=== PATIENT | male | born 1960 | race Two or more races ===

== ENCOUNTER 2017-07-11 09:28 | Day surgery (SDC) | payer BC ==
[~2017-07-11] VITALS: Ht 188 cm; Wt 104.3 kg
[2017-07-11] VITALS (14 sets, daily range): BP systolic 100–142; BP diastolic 70–102
[~2017-07-11 09:28] MED LIST: ceFAZolin 1gm/50ml Premix 50 ML IV ONE; ceFAZolin sod 1 GM in NS 55 ML IVPB ONE
[2017-07-11] MEDS ORDERED: Surgicel 4in x 8in TOPIC ONE (09:49)
[2017-07-11] MEDS ORDERED: Kenalog-40 1ml Vial ONE (09:50)
[2017-07-11] MEDS ORDERED: Bacitracin Oint 15gm Tube TOPIC ONE (09:50)
[2017-07-11] MEDS ORDERED: Cocaine 4% Vial TOPIC ONE (09:50)
[2017-07-11] MEDS ORDERED: Oxymetazoline 0.05% Na Spray 30ml NASAL ONE (09:51)
[2017-07-11] MEDS ORDERED: PRILOSEC10 M1 ORAL (09:58)
[2017-07-11] MEDS ORDERED: MULTIVITAMINS1 EAC2 ORAL (09:58)
[2017-07-11] MEDS ORDERED: ceFAZolin sod 1 GM in NS 55 ML IVPB ONE (10:30)
[2017-07-11] MEDS ORDERED: Lidocaine 1% 10mg/ml/Epi 0.005mg/ml 30ml vial INJ ONE (11:00)
--- NOTE | 2017-07-11 11:17 | Pre-Procedure Note/Attestation ---
Pre-Procedure Note/Attestation Complete Prior to Procedure Planned Procedure: not applicable Procedure Narrative: Septoplasty, bilateral inferior turbinectomies with intramural coagulation Indications for Procedure Pre-Operative Diagnosis: septal deviation, bilateral hypertrophied inferior turbinates Attestation I attest that I discussed the nature of the procedure; its benefits; risks and complications; and alternatives (and the risks and benefits of such alternatives ), prior to the procedure, with the patient (or the patient's legal career services representative). I attest that, if there was a reasonable possibility of needing a blood transfusion, the patient (or the patient's legal career services representative) was given the [facility] standardized written summary, pursuant to the [place] Blood Safety Act ([place] Health and Safety Code # 1645, as amended). I attest that I re-evaluated the patient just prior to the surgery and that there has been no change in the patient's H&P, except as documented below: DEBORAH KERR Jul 11, 2017 11:17
[2017-07-11] MEDS ORDERED: fentaNYL 100 mcg/2 mL IV ONE (11:30)
[2017-07-11] MEDS ORDERED: Neostigmine 1mg/ml 10ml Inj ONE (11:30)
[2017-07-11] MEDS ORDERED: Ketorolac 30mg Inj ONE (11:30)
[2017-07-11] MEDS ORDERED: Zemuron 50mg/5ml Inj IV ONE (11:30)
[2017-07-11] MEDS ORDERED: Labetalol 5mg/ml 20ml vial IV ONE (11:30)
[2017-07-11] MEDS ORDERED: LR 1000ml ONE (11:30)
[2017-07-11] MEDS ORDERED: Glycopyrrolate 0.2mg/ml 1ml Vial ONE (11:30)
[2017-07-11] MEDS ORDERED: Midazolam 2mg/2ml Inj ONE (11:30)
[2017-07-11] MEDS ORDERED: NS Irrig 1000ml ONE (11:30)
[2017-07-11] MEDS ORDERED: Sterile Water Irrig 1000ml IRRIG ONE (11:30)
[2017-07-11] MEDS ORDERED: Succinylcholine 20mg/ml 10ml vial ONE (11:30)
[2017-07-11] MEDS ORDERED: Propofol 10mg/ml 20ml IV ONE (12:41)
[2017-07-11] MEDS ORDERED: LR 1000ml 1,000 ML IVLG SCH (13:14)
--- NOTE | 2017-07-11 13:14 | Anethesia Preoperative Eval ---
Anesthesia Pre-op PMH/ROS General Date of Evaluation: Jul 11, 2017 Time of Evaluation: 10:50 Anesthesiologist: cesar ASA Score: ASA 2 Mallampati Score Class I : Soft palate, uvula, fauces, pillars visible Class II: Soft palate, uvula, fauces visible Class III: Soft palate, base of uvula visible Class IV: Only hard plate visible Mallampati Classification: Class II Surgeon: Vlad Diagnosis: Nasal septum deviation Surgical Procedure: Septoplasty Anesthesia History: none Family History: no anesthesia problems Allergies: Coded Allergies: No Known Allergies (Unverified , 07/09/17) Medications: see eMAR Past Medical History Cardiovascular: Denies: CAD, HTN, [place], arrhythmia, other, valve dz Pulmonary: Reports: [facility], Denies: COPD, asthma, other Gastrointestinal/Genitourinary: Reports: GERD - mild, Denies: CRI, ESRD, other Neurologic/Psychiatric: Denies: CVA, TIA, dementia, depression/anxiety, other Endocrine: Denies: DM, hypothyroidism, other, steroids HEENT: Denies: [place] (L), [place] (R), cataract (L), cataract (R), glaucoma, other Hematology/Immune: Denies: DVT, anemia, bleeding disorder, other Musculoskeletal/Integumentary: Denies: DDD, DJD, OA, RA, edema, other PMH Narrative: as above PSxH Narrative: R knee Sx, fundoplication Anesthesia Pre-op Phys. Exam Physician Exam Last Vital Signs Date Time Temp Pulse Resp B/P Pulse Ox O2 Delivery O2 Flow Rate FiO2 07/11/17 10:01 97.5 66 17 129/89 95 Room Air Constitutional: NAD Neurologic: CN 2-12 intact Cardiovascular: RRR, no M/R/G Respiratory: CTA Gastrointestinal: S/NT/ND Airway Exam Mallampati Score: Class III MO: full Neck: short ROM: full Teeth: intact Dentures: no lower, no upper Anesthesia Pre-op A/P Labs see chart Studies Pre-op Studies: EKG - NSR Risk Assessment & Plan Assessment: ASA 2 Plan: TIVA surgeon request BIS monitoring Status Change Before Surgery: No Pre-Antibiotics Drug: Ancef 2gr. Given Within 1 Hr of Incision: Yes Time Given: 11:56 DONALD MORRIS M.D. Jul 11, 2017 13:14
[2017-07-11] MEDS ORDERED: Hydromorphone 0.5mg/0.5ml inj IVP PRN (13:15)
[2017-07-11] MEDS ORDERED: Meperidine 25mg/0.5ml Inj (FOR RIGORS ONLY) IV PRN (13:15)
[2017-07-11] MEDS ORDERED: DiphenhydrAMINE 50mg/ml Inj IVP PRN (13:15)
[2017-07-11] MEDS ORDERED: Betadine 10% Oint 15gm TOPIC ONE (13:38)
--- NOTE | 2017-07-11 13:53 | Brief Operative Note ---
Immediate Post Operative Note Operative Note Pre-op Diagnosis: septal deviation, bilateral hypertrophied inferior turbinates Procedure: septoplasty, bilateral inferior turbinectomies with intramural coagulation Post-op Diagnosis: same as pre-op Surgeon: Raffi Kerr M.d. Anesthesiologist: Palma Anesthesia: general Specimen: yes - septum Complications: none Condition: stable Estimated Blood Loss: minimal Drains: none Packing: [email or web address] Implant(s) used?: No RAFFI KERR Jul 11, 2017 13:53
--- NOTE | 2017-07-11 14:13 | Immediate Post-Op Evaluation ---
Immediate Post-Op Evalulation Immediate Post-Op Evalulation Procedure: Septoplasty Date of Evaluation: Jul 11, 2017 Time of Evaluation: 14:12 IV Fluids: 1400 Blood Products: none Estimated Blood Loss: 50 Urinary Output: none Blood Pressure Systolic: 103 Blood Pressure Diastolic: 57 Pulse Rate: 72 Respiratory Rate: 20 O2 Sat by Pulse Oximetry: 99 Temperature (Fahrenheit): 97,6 Pain Score (1-10): 2 Nausea: No Vomiting: No Complications none Patient Status: reacts, patent, extubated, none Hydration Status: adequate DONALD MORRIS M.D. Jul 11, 2017 14:13
[2017-07-11] MEDS ORDERED: Chloraseptic Spray 20mL Bottle ORAL PRN (15:15)
--- NOTE | 2017-07-13 02:45 | Operative Note - Dictated ---
DATE OF OPERATION: 07/11/2017 SURGEON: Raffi Chu M.D. ANESTHESIOLOGIST: Maciel Bauman M.D. ANESTHESIA: General. PREOPERATIVE DIAGNOSES: 1. Septal deviation. 2. Bilateral hypertrophied inferior turbinates. POSTOPERATIVE DIAGNOSES: 1. Septal deviation. 2. Bilateral hypertrophied inferior turbinates. PROCEDURES: 1. Septoplasty. 2. Bilateral inferior turbinectomies with intramural coagulation. INDICATION FOR SURGERY: The patient is a 55-year-old male who complains of daily headaches and nasal obstruction. He has been placed on multiple oral and intranasal medication without relief of the headaches or his nasal congestion. His examination revealed an S-shaped septal deviation blocking both nasal passages and impacting hypertrophied inferior turbinates. The patient is now being brought to the operating room for surgical repair. Procedure And Findings: The patient was brought to the operating room while premedicated and have received preoperative antibiotics. He was then placed in supine position on the operating room table. After the patient underwent endotracheal intubation, he was given intravenous sedation. The nasal cavity was sprayed with 0.25% Avery-Synephrine. Sterile Q-tips saturated with Betadine were used to sterilize the intranasal cavity and to remove trap mucus. Approximately 20 mL of 1% Xylocaine with 1:100,000 epinephrine were used to inject the nasal and septal frameworks. Less than 200 mg of cocaine were used on intranasal packing. Sterile scissors with KY jelly were then used to remove the intranasal nostril hairs. The patient then prepped and draped in usual sterile fashion. It was of note that during the injection there was significant resistance and thickened tissue throughout the lower part of the septum. After satisfactory period of time had elapsed for anesthesia and vasoconstriction, the packing was removed. Examination revealed the septum to be severely deviated to the left anteriorly and inferiorly and then deviated to the right superiorly and posteriorly. The septum also was noted to be concave to the left pushing up against the inferior turbinate as was the right septal deviation This combined with the patient's bilateral hypertrophied inferior turbinates created a bilateral nasal airway obstruction and I feel was contributing to his headaches. With a number 15 blade, a left inferior septal incision was then made and a left mucoperichondrial and mucoperiosteal flap was eventually elevated running into scar tissue and very thick overlying mucoperichondrium and mucoperiosteum. An incision was made between the cartilage and bony septum and a right mucoperiosteal flap was then elevated. That portion was overriding and obstructing perpendicular plate of the ethmoid and vomer bone were incised in strips from any attachments and removed the field of operation. A mallet and chisel was needed to remove the remaining vomer bone and left maxillary crest spur. The right maxillary crest spur was also removed with mallet and chisel technique. Attention was then turned to the cartilaginous septum. A similar technique of incising in strips was used on the cartilaginous septum maintaining anterior and inferior support. The septum was found to be very floppy. Re-examination now revealed the patient's septum to be in midline physiologic position for breathing. Bipolar intramural coagulation of both inferior turbinates was then performed. An incision was made in the undersurface of each inferior turbinate and the mucosa stripped from the underlying bone. The inferior turbinates were then outfractured and small pieces of bone removed from the pocket. Re-examination now revealed the patient had a good bilateral nasal airway. All blood was suctioned from the nose and nasopharynx area. 4-0 plain was used to close the septal incision as well as to splint the septum. Telfa coated with Betadine ointment was secured intranasally with a suture of 3-0 silk and the procedure was terminated. The patient tolerated the procedure well and left the operating room in satisfactory condition. Estimated blood loss was 30 mL. Sponge and needle count were correct. Raffi Chu M.D. DR: Hardik JOB#: [id number] CC: [email or web address]
== END 2017-07-11 16:15 | disposition home or self-care (01) ==
LOC: SUR 09:28
DX: J34.2 Deviated nasal septum (principal); J34.3 Hypertrophy of nasal turbinates; R51 Headache; R42 Dizziness and giddiness; I25.10 Atherosclerotic heart disease of native coronary artery without angina pectoris; E11.9 Type 2 diabetes mellitus without complications; Z79.4 Long term (current) use of insulin; G47.33 Obstructive sleep apnea (adult) (pediatric); K21.9 Gastro-esophageal reflux disease without esophagitis; N19 Unspecified kidney failure; I49.9 Cardiac arrhythmia, unspecified; I50.9 Heart failure, unspecified; K44.9 Diaphragmatic hernia without obstruction or gangrene; Z86.73 Personal history of transient ischemic attack (TIA), and cerebral infarction without residual deficits; K27.9 Peptic ulcer, site unspecified, unspecified as acute or chronic, without hemorrhage or perforation; Z90.49 Acquired absence of other specified parts of digestive tract
CPT/HCPCS: 30520; 30802; J0330; J0690; J1885; J2250; J2405; J2704; J2710; J3010; J7120; 94003; 94150; J2180